=== PATIENT | male | born 1975 | race Caucasian/White ===

== ENCOUNTER 2017-11-18 09:48 | Inpatient (IN) ==
[2017-11-18] MEDS ORDERED: Acetaminophen 325 MG Tablet PO PRN (15:05)
[2017-11-18] MEDS ORDERED: Bisacodyl 10 MG Supp RECTAL PRN (15:05)
[2017-11-18] MEDS ORDERED: Morphine Inj 4 MG/ML Vial IV.PUSH PRN (15:13)
[2017-11-18] MEDS: Sod Chloride 0.9% Inj 1,000 ML IV.CONT SCH ×2 (16:44→23:24)
--- NOTE | 2017-11-18 16:58 | P.HP ---
History of Present Illness Primary Care Physician: UNKNOWN Chief Complaint: Flank pain History of Present Illness: The patient is a 42-year-old male with history significant for kidney stones in the past presenting with complaint of right flank pain since this morning. He had minimal urination does not have a urologist and he had several episodes of vomiting and currently nausea. He was not able to keep any food down today. Says pain is radiating to the groin. He also complains of chills but no fevers. No hematuria. Reports increased urinary urgency. The pain is 9 out of 10, sharp and stabbing in the right side radiating to the groin. Pain is constant however it gets worse at times. Review of Systems All other systems reviewed negative except as stated in HPI [facility] - History History Provided By: Patient - Medical History Medical History: Medical History (Last Reviewed 11/18/17 @ 17:04 by Bailey Shoemaker MD) Kidney stones - Surgical History Surgical History: Surgical History (Last Reviewed 11/18/17 @ 17:04 by Bailey Shoemaker MD) Hx of circumcision - Family History Family History: Family History (Last Updated 11/18/17 @ 17:05 by Bailey Shoemaker MD) Mother Hypertension Mother Breast cancer - Tobacco History Smoking Status: Never smoker - Alcohol History How Often Do You Have a Drink Containing Alcohol: 2 to 4 times a month - Substance Use History Substance History: No History of Abuse Medications and Allergies Active Medications: Active Medications Acetaminophen (Tylenol) 650 mg PO Q4H PRN PRN Reason: Temp > 100.4 Hydrocodone Bitart/Acetaminophen ([place] 10/325) 1 tab PO Q4H PRN PRN Reason: pain 2-5 Hydrocodone Bitart/Acetaminophen ([place] 5/325) 1 tab PO Q4H PRN PRN Reason: PAIN 6-10;IF UNABLE TO TAKE PO Al Hydroxide/Mg Hydroxide (Milk Of Magnesia Liq) 30 ml PO Q12H PRN PRN Reason: Mild Constipation Bisacodyl (Dulcolax Supp) 10 mg RECTAL DAILY PRN PRN Reason: SEVERE CONSITIPATION Sodium Chloride (Ns Inj) 1,000 mls @ 150 mls/hr IV.CONT .Q6H40M [facility] Last Admin: 11/18/17 16:44 Dose: 150 mls/hr Lactulose (Lactulose Liq) 30 ml PO DAILY PRN PRN Reason: SEVERE CONSITIPATION Morphine Sulfate (Morphine Inj) 2 mg IV.PUSH Q4H PRN PRN Reason: BREAKTHROUGH PAIN Ondansetron HCl (Zofran Inj) 4 mg IV.PUSH Q6H PRN PRN Reason: NAUSEA OR VOMITING Promethazine HCl (Phenergan) 25 mg PO Q6H PRN PRN Reason: nausea/vomi if can take PO Senna/Docusate Sodium (Quynh-Colace) 1 tab PO BID [facility] Sennosides (Senokot) 17.2 mg PO Q12H PRN PRN Reason: Moderate Constipation Allergies Allergy/AdvReac Type Severity Reaction Status Date / Time No Known Allergies Allergy Verified 11/18/17 11:04 Home Medications Medication Instructions Recorded Confirmed Type No Known Home Medications 11/18/17 11/18/17 History Exam Vital signs: Vital Signs 11/18/17 16:00 Temperature 98.6 F Pulse Rate 67 Respiratory Rate 18 Blood Pressure 143/77 H Pulse Oximetry 98 Narrative: GENERAL: Pleasant 42-year-old male, appears in some pain. SKIN: Warm and dry. HEAD: Atraumatic. Normocephalic. EYES: Pupils equal and round. No scleral icterus. No injection or drainage. ENT: No nasal bleeding or discharge. Mucous membranes pink and moist. NECK: Trachea midline. No JVD. CARDIOVASCULAR: Regular rate and rhythm. RESPIRATORY: No accessory muscle use. Clear to auscultation. Breath sounds equal bilaterally. GASTROINTESTINAL: Abdomen soft, right flank pain, nondistended. Mild right CVA tenderness. MUSCULOSKELETAL: Extremities without clubbing, cyanosis, or edema. No obvious deformities. NEUROLOGICAL: Awake and alert. No obvious cranial nerve deficits. Motor grossly within normal limits. Five out of 5 muscle strength in the arms and legs. Normal speech. PSYCHIATRIC: Appropriate mood and affect; insight and judgment normal. Results - Labs CBC & Chem 7: 11/19/17 06:50 11/19/17 06:50 Caprini VTE Risk Assessment Caprini VTE Risk Assessment: Moderate/High Risk (score >= 2) Caprini Risk Assessment Model: Point Value = 1 Point Value = 2 Point Value = 3 Point Value = 5 Age 41-60 Minor surgery BMI > 25 kg/m2 Swollen legs Varicose veins or History of unexplained or recurrent spontaneous Oral contraceptives or hormone replacement Sepsis (< 1 month) Serious lung disease, including pneumonia (< 1 month) Abnormal pulmonary function Acute myocardial infarction Congestive heart failure (< 1 month) History of inflammatory bowel disease Medical patient at bed rest Age 61-74 Arthroscopic surgery Major open surgery (> 45 min) Laparoscopic surgery (> 45 min) Malignancy Confined to bed (> 72 hours) Immobilizing plaster cast Central venous access Age >= 75 History of VTE Family history of VTE Factor V Leiden Prothrombin 12415L Lupus anticoagulant Anticardiolipin antibodies Elevated serum homocysteine Heparin-induced thrombocytopenia Other congenital or acquired thrombophilia Stroke (< 1 month) Elective arthroplasty Hip, pelvis, or leg fracture Acute spinal cord injury (< 1 month) Prophylaxis Regimen: Total Risk Factor Score Risk Level Prophylaxis Regimen 0-1 Low Early ambulation 2 Moderate Order ONE of the following: *Sequential Compression Device (SCD) *Heparin 5000 units SQ BID 3-4 Higher Order ONE of the following medications: *Heparin 5000 units SQ TID *Enoxaparin/Lovenox 40 mg SQ daily (WT < 150 kg, CrCl > 30 mL/min) *Enoxaparin/Lovenox 30 mg SQ daily (WT < 150 kg, CrCl > 10-29 mL/min) *Enoxaparin/Lovenox 30 mg SQ BID (WT < 150 kg, CrCl > 30 mL/min) AND/OR *Sequential Compression Device (SCD) 5 or more Highest Order ONE of the following medications: *Heparin 5000 units SQ TID (Preferred with Epidurals) *Enoxaparin/Lovenox 40 mg SQ daily (WT < 150 kg, CrCl > 30 mL/min) *Enoxaparin/Lovenox 30 mg SQ daily (WT < 150 kg, CrCl > 10-29 mL/min) *Enoxaparin/Lovenox 30 mg SQ BID (WT < 150 kg, CrCl > 30 mL/min) AND *Sequential Compression Device (SCD) Assessment and Plan - Plan Patient is a 42 yo male with h/o kidney stones, presented to [facility] with right flank pain. Patient with right obstructive uropathy and one stone already passed. Obstructing stone 6 mm in its proximally in the ureter and patient with associated hydronephrosis. The patient is also with nausea and vomiting and not able to take PO. Started on antiemetics. Pain meds per pain scale. Consult urology for eval. Monitor labs. Right Ureteral calculus Hydronephrosis of right kidney and hydroureter Nausea and vomiting Abdomen/Pelvis CT reviewed and findings discussed with ER doctor: 1. 6 mm mid right ureteral stone with proximal hydronephrosis and hydroureter. There is a 4 mm stone either within the urinary bladder itself or within the intramural segment of the right distal ureter. 2. Bilateral renal calculi. 3. Hepatic and renal cysts. IVF antiemetics Monitor kidney function, consult urology.
[2017-11-18] MEDS: Senna/Docusate Sodium 8.6/50 MG Tablet PO SCH (20:50)
[2017-11-19] MEDS: Sod Chloride 0.9% Inj 1,000 ML IV.CONT SCH ×3 (06:06→20:30)
[2017-11-19 07:33] LABS: Baso % (Auto) 0.3 % (0.0-2.0); Eos % (Auto) 0.4 % (0.0-4.0); Hematocrit 40.4 % (39.0-51.0); Hemoglobin 13.8 gm/dL (13.0-17.0); Lymph # (Auto) 1.1 th/mm3 (1.0-4.8); Lymph % (Auto) 15.1 % (9.0-44.0); Mean Corpuscular HGB Conc 34.2 % (32.0-36.0); Mean Corpuscular Volume 87.8 fL (80.0-100.0); Mean Platelet Volume 7.1 fL (7.0-11.0); Mono # (Auto) 0.9 th/mm3 (0.0-0.9); Neut # (Auto) 5.1 th/mm3 (1.8-7.7); Neut % (Auto) 71.2 % (16.0-70.0); Platelet Count 184 th/mm3 (150-450); Red Blood Count 4.61 mil/mm3 (4.50-5.90); Red Cell Distribution Width 12.9 % (11.6-17.2); White Blood Count 7.2 th/mm3 (4.0-11.0)
[2017-11-19 08:03] LABS: Calcium 8.5 mg/dL (8.5-10.1); Potassium 3.7 meq/L (3.5-5.1)
[2017-11-19] MEDS ORDERED: Naloxone Inj 0.4 MG/ML Vial IV.PUSH PRN (08:41)
[2017-11-19] MEDS: Senna/Docusate Sodium 8.6/50 MG Tablet PO SCH ×2 (09:00→22:28)
[2017-11-19] MEDS ORDERED: HYDROmorphone PF Inj 2 MG/ML Vial IV.PUSH PRN ×2 (09:15)
--- NOTE | 2017-11-19 14:02 | P.PN ---
Subjective Interval history: Patient is seen lying in bed. He reports that he is painful but tolerable. Continues to have nausea. Feels the need to urinate frequently but is only able to produce a small amount of urine at a time. No chest pain or shortness of breath. Physical Exam Vital signs: Vital Signs 11/18/17 16:00 11/18/17 17:13 11/18/17 17:57 Temperature 98.6 F Pulse Rate 67 Respiratory Rate 18 14 16 Blood Pressure 143/77 H Pulse Oximetry 98 11/18/17 20:00 11/18/17 23:19 11/19/17 04:00 Temperature 98.3 F 98.7 F 98.1 F Pulse Rate 77 69 83 Respiratory Rate 18 18 18 Blood Pressure 114/64 128/61 133/81 Pulse Oximetry 93 L 96 99 11/19/17 07:35 11/19/17 08:59 11/19/17 09:30 Temperature 98.7 F Pulse Rate 66 Respiratory Rate 20 16 14 Blood Pressure 135/73 Pulse Oximetry 96 11/19/17 12:16 11/19/17 12:45 Temperature 98.3 F Pulse Rate 66 Respiratory Rate 18 14 Blood Pressure 130/67 Pulse Oximetry 97 Intake & Output 11/18/17 11/19/17 11/19/17 18:59 06:59 18:59 Intake Total 140 / 140 1999 1000 / 1000 Output Total 40 / 40 Balance 100 / 100 1999 1000 / 1000 Weight 124.7 kg Intake: IV 1999 1000 / 1000 NS Inj 1,000 ML @ 150 mls/hr IV 1999 1000 / 1000 .CONT .Q6H40M [facility] Rx#:[id number] Oral 140 / 140 Output: Urine 40 / 40 Other: # Voids 2 Date of Last Bowel Movement 11/18/17 11/18/17 11/18/17 Weight On Admission 124.284 kg Narrative: GENERAL: Well-nourished, well-developed adult male in mild pain. SKIN: Warm and dry. HEAD: Atraumatic. Normocephalic. CARDIOVASCULAR: Regular rate and rhythm. RESPIRATORY: No accessory muscle use. Clear to auscultation. Breath sounds equal bilaterally. GASTROINTESTINAL: Abdomen soft, right flank pain, nondistended. Right CVA tenderness. MUSCULOSKELETAL: Extremities without clubbing, cyanosis, or edema. No obvious deformities. NEUROLOGICAL: Awake and alert. No obvious cranial nerve deficits. Motor grossly within normal limits. Normal speech. PSYCHIATRIC: Appropriate mood and affect; insight and judgment normal. Results - Labs CBC & Chem 7: 11/19/17 06:50 11/19/17 06:50 Laboratory Results - last 24 hr 11/19/17 11/19/17 06:50 06:50 WBC 7.2 RBC 4.61 Hgb 13.8 Hct 40.4 MCV 87.8 MCH 30.0 MCHC 34.2 RDW 12.9 Plt Count 184 MPV 7.1 Neut % (Auto) 71.2 H Lymph % (Auto) 15.1 Blount % (Auto) 13.0 H Eos % (Auto) 0.4 Baso % (Auto) 0.3 Neut # (Auto) 5.1 Lymph # (Auto) 1.1 Blount # (Auto) 0.9 Eos # (Auto) 0.0 Baso # (Auto) 0.0 WBC Differential . Differential Comment Auto diff final Sodium 140 Potassium 3.7 Chloride 109 H Carbon Dioxide 24.0 Anion Gap 7 BUN 9 Creatinine 1.47 H Estimated GFR 53 L Random Glucose 97 Calcium 8.5 Assessment and Plan - Plan Patient is a 42 yo male with h/o kidney stones, presented to [place] ER with right flank pain. Right Ureteral calculus w/ Hydronephrosis of right kidney and hydroureter -Urology consulted -IVF -antiemetics and pain control DVT prophylaxis: Patient is ambulatory Discharge planning: Likely home after cleared by urology
[2017-11-19] MEDS ORDERED: Metoprolol Tartrate 25 MG Tablet PO ONE (15:57)
[2017-11-19] MEDS ORDERED: Chlorhexidine Gluconate 2% 1 Pack (2 Cloths) TOPICAL ONE (15:57)
[2017-11-19] MEDS ORDERED: Lidocaine PF 1% Inj 5 ML Syringe OTHER ONE (16:38)
--- NOTE | 2017-11-19 18:39 | P.OP ---
- Preoperative Diagnosis (1) Ureteral calculus (2) Renal calculi (3) Hydronephrosis concurrent with and due to calculi of kidney and ureter - Postoperative Diagnosis (1) Hydronephrosis concurrent with and due to calculi of kidney and ureter (2) Renal calculi (3) Ureteral calculus Date of procedure: 11/19/17 Procedure: Cystoscopy with right ureteroscopy and laser lithotripsy, stone extraction, right retrograde pyelogram, right double-J stent insertion Anesthesia: other (General LMA) Surgeon: Chadd Loo DO Estimated blood loss (mL): 0 Operation and Findings: 42-year-old male presented to the emergency room with findings of a 7 mm stone in the mid right ureter causing obstruction. Patient also had multiple stones in the right kidney. Decision made to bring the patient to the operating room to undergo cystoscopy with possible right double-J stent with possible ureteroscopy and stone extraction. Risk and benefits were discussed preoperatively and the patient was willing to proceed. Patient was brought to the operating identified by myself as Everton Quintana. He was placed in dorsal lithotomy position, prepped draped in sterile fashion, received preprocedure antibiotics and general LMA anesthesia was administered. 22 Telugu cystoscope was inserted the bladder brown cystoscopy did not reveal any abnormal did a right retrograde pyelogram was then performed using a 5 Telugu opening catheter with contrast material injected into the right ureter with no filling defect identified. A few filling defects were identified within the right kidney. The Olympus flexible ureteroscope was then passed into the bladder and up the right ureter with no stone visualized in the right ureter. Once in the kidney, multiple stones were identified. Using the nitinol basket multiple stone fragments were retrieved and sent to pathology. A large stone was also grasped with a nitinol basket which got caught in the ureter and then a 200 m laser fiber at a setting of 10 and 10 was able to fragment of the stone. The fragments were removed from the ureter and then the stone burden appeared to be cleared at this point in time. Another retrograde pyelogram was then performed demonstrating no evidence of any obstructing stones within the ureter and then a 0.35 sensor wire was passed up into the kidney. A 6 Telugu 24 cm right double -J stent was placed over the wire with a good curl in the kidney and a good curl in the bladder. The bladder was evacuated he was awoken extubated transferred Stable condition. He will follow-up in the office in 2 weeks for cystoscopy stent removal and will have a CAT scan prior to make sure all stone burden has cleared.
[2017-11-19] MEDS ORDERED: *Meperidine Inj 25 MG/ML Vial PERIprocedural Use ONLY ONE (18:42)
[2017-11-19] MEDS ORDERED: fentaNYL Citrate Inj 100 MCG/2 ML Ampul ONE (18:56)
[2017-11-19] MEDS: *Meperidine Inj 25 MG/ML Vial PERIprocedural Use ONLY ONE ×2 (19:01)
[2017-11-19] MEDS ORDERED: Morphine Sulfate Inj 2 MG/ML Vial IV.PUSH PRN (19:28)
[2017-11-19] MEDS ORDERED: Sodium Chloride 0.9% 2 ML Flush PRN IV.FLUSH (20:21)
[2017-11-19] MEDS: Sodium Chloride 0.9% 2 ML Flush BID IV.FLUSH SCH (22:28)
[2017-11-19] MEDS: Sodium Chlor 0.9% Inj 500 ML IV.SIG SCH (22:39)
[2017-11-20] MEDS: Sodium Chlor 0.9% Inj 500 ML IV.SIG SCH (00:48)
[2017-11-20] MEDS: Sod Chloride 0.9% Inj 1,000 ML IV.CONT SCH ×3 (00:58→08:26)
[2017-11-20] MEDS: ceFAZolin 2 GM Premix Inj 2 GM/50 ML PIGGYBACK IV.SIG SCH ×2 (00:59→10:06)
--- NOTE | 2017-11-20 07:49 | P.PN ---
Subjective Interval history: Patient is seen sitting up in bed. Reports that he is feeling much better however he still has some pretty significant burning with urination. No chest pain or shortness of breath. No nausea vomiting or diarrhea. He would like to go home. Physical Exam Vital signs: Vital Signs 11/19/17 08:59 11/19/17 09:30 11/19/17 12:16 Temperature 98.3 F Pulse Rate 66 Respiratory Rate 16 14 18 Blood Pressure 130/67 Pulse Oximetry 97 11/19/17 12:45 11/19/17 18:45 11/19/17 19:00 Temperature 98.1 F Pulse Rate 123 H 97 H Respiratory Rate 14 30 H 30 H Blood Pressure 147/65 H 136/60 Pulse Oximetry 96 97 11/19/17 19:15 11/19/17 19:30 11/19/17 20:00 Temperature 98 F 98.8 F Pulse Rate 92 H 80 84 Respiratory Rate 24 24 16 Blood Pressure 135/96 H 126/58 L 123/65 Pulse Oximetry 95 97 93 L 11/19/17 23:38 11/20/17 03:38 Temperature 98.8 F 98.8 F Pulse Rate 72 78 Respiratory Rate 16 16 Blood Pressure 127/65 105/61 Pulse Oximetry 94 L 95 Intake & Output 11/19/17 11/20/17 11/20/17 18:59 06:59 18:59 Intake Total 1700 / 1700 1060 / 1060 Output Total 5 / 5 500 / 500 Balance 1695 / 1695 560 / 560 Intake: IV 1000 / 1000 1050 / 1050 NS Inj 1,000 ML @ 150 mls/hr IV 1000 / 1000 1000 / 1000 .CONT .Q6H40M [facility] Rx#:[id number] Ancef 2 GM Premix Inj 2 gm In 50 / 50 50 ml @ 100 mls/hr IV.SIG Q8H [facility] Rx#:[id number] Oral Anesthesia Amount 700 / 700 Output: Urine 500 / 500 Estimated Blood Loss 5 / 5 Other: # Voids 4 # Incontinent Voids 1 Date of Last Bowel Movement 11/18/17 11/18/17 Narrative: GENERAL: Well-nourished, well-developed adult male in mild pain. SKIN: Warm and dry. HEAD: Atraumatic. Normocephalic. CARDIOVASCULAR: Regular rate and rhythm. RESPIRATORY: No accessory muscle use. Clear to auscultation. Breath sounds equal bilaterally. GASTROINTESTINAL: Abdomen soft, nontender, nondistended. MUSCULOSKELETAL: Extremities without clubbing, cyanosis, or edema. No obvious deformities. NEUROLOGICAL: Awake and alert. No obvious cranial nerve deficits. Motor grossly within normal limits. Normal speech. PSYCHIATRIC: Appropriate mood and affect; insight and judgment normal. Results - Labs CBC & Chem 7: 11/19/17 06:50 11/19/17 06:50 Laboratory Results - last 24 hr 11/19/17 06:50 Sodium 140 Potassium 3.7 Chloride 109 H Carbon Dioxide 24.0 Anion Gap 7 BUN 9 Creatinine 1.47 H Estimated GFR 53 L Random Glucose 97 Calcium 8.5 Assessment and Plan - Assessment (1) Ureteral calculus Code(s): N20.1 - Calculus of ureter Status: Acute (2) Renal calculi Code(s): N20.0 - Calculus of kidney Status: Acute (3) Hydronephrosis concurrent with and due to calculi of kidney and ureter Code(s): N13.2 - Hydronephrosis with renal and ureteral calculous obstruction Status: Acute - Plan Patient is a 42 yo male with h/o kidney stones, presented to [place] ER with right flank pain. Right Ureteral calculus w/ Hydronephrosis of right kidney and hydroureter -Urology consulted -cystoscopic V and stone removal done 11/19. Drain placed. follow-up outpatient -IVF -antiemetics and pain control DVT prophylaxis: Patient is ambulatory Discharge planning: home after cleared by urology
--- NOTE | 2017-11-20 08:05 | P.DS ---
Date of admission: 11/19/17 16:38 Primary care physician: UNKNOWN Attending physician on discharge: Fernando Deleon Anticipated date of discharge: 11/20/17 Brief History from admission: The patient is a 42-year-old male with history significant for kidney stones in the past presenting with complaint of right flank pain since this morning. He had minimal urination does not have a urologist and he had several episodes of vomiting and currently nausea. He was not able to keep any food down today. Says pain is radiating to the groin. He also complains of chills but no fevers. No hematuria. Reports increased urinary urgency. The pain is 9 out of 10, sharp and stabbing in the right side radiating to the groin. Pain is constant however it gets worse at times. DS: Diagnosis - Discharge Diagnosis (1) Ureteral calculus Status: Resolved (2) Renal calculi Status: Resolved (3) Hydronephrosis concurrent with and due to calculi of kidney and ureter Status: Resolved DS: Medications - Discharge Medications Prescriptions: RX: hydrocodone-acetaminophen 1 tab PO Q8HR PRN #9 tab PRN Reason: Acute Pain DS: Summary Hospital Course: 42-year-old male presented to the emergency room with findings of a 7 mm stone in the mid right ureter causing obstruction. Patient also had multiple stones in the right kidney. Urology was consulted and a cystoscopy with right ureteroscopy and laser lithotripsy, stone extraction, right retrograde pyelogram , right double-J stent insertion was completed by Dr. Loo on 11/19/17. Patient responded well and reported significant lessening of pain. Plan is for follow-up in the office in 2 weeks for cystoscopy stent removal and will have a CAT scan prior to make sure all stone burden has cleared. [place] Prescription Drug Monitoring Database has been queried and verified prior to prescribing the controlled substance. Acute pain exception: This patient has normal, predicted, physiological, and time limited response to an adverse mechanical stimulus associated with surgery , trauma, or acute illness as described in my notes. There is a lack of alternative treatment options other than to include the prescribed narcotic treatment for this condition. - Time Spent with Patient Total time spent providing and/or coordinating discharge services: Less than 30 minutes - Quality: VTE Deep Vein Thrombosis/Pulmonary Embolism Present on Admission: No Exam Vital signs: Vital Signs 11/19/17 08:59 10/11/18 09:30 11/19/17 12:16 Temperature 98.3 F Pulse Rate 66 Respiratory Rate 16 14 18 Blood Pressure 130/67 Pulse Oximetry 97 11/19/17 12:45 11/19/17 18:45 11/19/17 19:00 Temperature 98.1 F Pulse Rate 123 H 97 H Respiratory Rate 14 30 H 30 H Blood Pressure 147/65 H 136/60 Pulse Oximetry 96 97 11/19/17 19:15 11/19/17 19:30 11/19/17 20:00 Temperature 98 F 98.8 F Pulse Rate 92 H 80 84 Respiratory Rate 24 24 16 Blood Pressure 135/96 H 126/58 L 123/65 Pulse Oximetry 95 97 93 L 11/19/17 23:38 11/20/17 03:38 Temperature 98.8 F 98.8 F Pulse Rate 72 78 Respiratory Rate 16 16 Blood Pressure 127/65 105/61 Pulse Oximetry 94 L 95 Intake & Output 11/19/17 11/20/17 11/20/17 18:59 06:59 18:59 Intake Total 1700 / 1700 1060 / 1060 Output Total 5 / 5 500 / 500 Balance 1695 / 1695 560 / 560 Intake: IV 1000 / 1000 1050 / 1050 NS Inj 1,000 ML @ 150 mls/hr IV 1000 / 1000 1000 / 1000 .CONT .Q6H40M [facility] Rx#:[id number] Ancef 2 GM Premix Inj 2 gm In 50 / 50 50 ml @ 100 mls/hr IV.SIG Q8H [facility] Rx#:[id number] Oral Anesthesia Amount 700 / 700 Output: Urine 500 / 500 Estimated Blood Loss 5 / 5 Other: # Voids 4 # Incontinent Voids 1 Date of Last Bowel Movement 11/18/17 11/18/17 Narrative: GENERAL: Well-nourished, well-developed adult male in mild pain. SKIN: Warm and dry. HEAD: Atraumatic. Normocephalic. CARDIOVASCULAR: Regular rate and rhythm. RESPIRATORY: No accessory muscle use. Clear to auscultation. Breath sounds equal bilaterally. GASTROINTESTINAL: Abdomen soft, nontender, nondistended. MUSCULOSKELETAL: Extremities without clubbing, cyanosis, or edema. No obvious deformities. NEUROLOGICAL: Awake and alert. No obvious cranial nerve deficits. Motor grossly within normal limits. Normal speech. PSYCHIATRIC: Appropriate mood and affect; insight and judgment normal. Results Procedures completed during hospitalization: 11/19/17 - Cystoscopy with right ureteroscopy and laser lithotripsy, stone extraction, right retrograde pyelogram, right double-J stent insertion Pending studies at discharge: Pending at discharge 11/19/17 Surgical [PTH] Routine Labs on day of discharge: Labs from last 24 hours 11/19/17 06:50 Sodium 140 Potassium 3.7 Chloride 109 H Carbon Dioxide 24.0 Anion Gap 7 BUN 9 Creatinine 1.47 H Estimated GFR 53 L Random Glucose 97 Calcium 8.5 Discharge Plan - Discharge Disposition Patient Disposition: Discharge Home - Discharge Condition Condition: Stable - Discharge Order Discharge Orders: Discharge Order (Routine); Ordered 11/20/17 Ordered By: Armida Manning - Discharge Details Discharge Comment: Patient is cleared for discharge medically; will need clearance from urology. Urology to determine need for continued tamsulosin and antibiotic treatment. - Physicians Team Primary Care Provider: UNKNOWN, Attending Provider: Fernando Deleon Other Providers: Chadd Loo DO - Rxs /Orders / Referrals /Forms Prescriptions: New hydrocodone-acetaminophen 5-325 mg Tablet 1 tab PO Q8HR PRN (Reason: Acute Pain) Qty: 9 RF: 0 No Action No Known Home Medications Referrals: Chadd Loo DO [UROLOGY] - See Instructions UNKNOWN, [Primary Care Provider] - See Instructions - Discharge Instructions Patient Printed Instructions: Cystoscopy (DC) - Post Discharge Care Plan Care Plan Goals: Your Health Problems: Goals to Promote Your Health: * To prevent worsening of your condition * To maintain your health at the optimal level Directions to Meet Your Goals: * Take your medications as prescribed * Follow your dietary instruction * Follow activity as directed * Keep your appointments as scheduled * Take your immunizations and boosters as scheduled * If your symptoms worsen call your PCP * If no PCP go to Urgent Care or Emergency Room Smoking is dangerous to your health. Avoid second hand smoke. You may reach the 24-hour crisis hotline for domestic abuse at .
[2017-11-20 08:18] VITALS: BP 120/73; PULSE 90; RESP 18; TEMP 98.1; O2SAT 96
[2017-11-20] MEDS: Sodium Chloride 0.9% 2 ML Flush BID IV.FLUSH SCH (08:27)
--- NOTE | 2017-11-20 08:51 | P.PNURO ---
Subjective Patient symptoms today: Pt seen and examined. Feeling better. Objective Vital Signs: Vital Signs 11/19/17 08:59 11/19/17 09:30 11/19/17 12:16 Temperature 98.3 F Pulse Rate 66 Respiratory Rate 16 14 18 Blood Pressure 130/67 Pulse Oximetry 97 11/19/17 12:45 11/19/17 18:45 11/19/17 19:00 Temperature 98.1 F Pulse Rate 123 H 97 H Respiratory Rate 14 30 H 30 H Blood Pressure 147/65 H 136/60 Pulse Oximetry 96 97 11/19/17 19:15 11/19/17 19:30 11/19/17 20:00 Temperature 98 F 98.8 F Pulse Rate 92 H 80 84 Respiratory Rate 24 24 16 Blood Pressure 135/96 H 126/58 L 123/65 Pulse Oximetry 95 97 93 L 11/19/17 23:38 11/20/17 03:38 11/20/17 08:00 Temperature 98.8 F 98.8 F 98.1 F Pulse Rate 72 78 90 Respiratory Rate 16 16 18 Blood Pressure 127/65 105/61 120/73 Pulse Oximetry 94 L 95 96 Intake & Output 11/19/17 11/20/17 11/20/17 18:59 06:59 18:59 Intake Total 1700 / 1700 1060 / 1060 Output Total 5 / 5 500 / 500 Balance 1695 / 1695 560 / 560 Intake: IV 1000 / 1000 1050 / 1050 NS Inj 1,000 ML @ 150 mls/hr IV 1000 / 1000 1000 / 1000 .CONT .Q6H40M [facility] Rx#:[id number] Ancef 2 GM Premix Inj 2 gm In 50 / 50 50 ml @ 100 mls/hr IV.SIG Q8H [facility] Rx#:[id number] Oral Anesthesia Amount 700 / 700 Output: Urine 500 / 500 Estimated Blood Loss 5 / 5 Other: # Voids 4 # Incontinent Voids 1 Date of Last Bowel Movement 11/18/17 11/18/17 Result Diagrams: 11/19/17 06:50 11/19/17 06:50 Medications and IVs: Active Medications Generic Name Dose Route Start Last Admin Trade Name Freq PRN Reason Stop Dose Admin Acetaminophen 650 mg 11/18/17 15:05 Tylenol PO Q4H PRN Temp > 100.4 Hydrocodone Bitart/Acetaminophen 1 tab 10/11/18 19:28 Lissie 5/325 PO Q6H PRN PAIN SCALE 1 TO 5 Al Hydroxide/Mg Hydroxide 30 ml 11/18/17 15:05 Milk Of Magnesia Liq PO Q12H PRN Mild Constipation Bisacodyl 10 mg 11/18/17 15:05 Dulcolax Supp RECTAL DAILY PRN SEVERE CONSITIPATION Sodium Chloride 1,000 mls @ 150 mls/hr 11/18/17 15:15 11/20/17 08:26 Ns Inj IV.CONT Not Given .Q6H40M [facility] Lactated Ringer's 1,000 mls @ 30 mls/hr 11/19/17 16:00 11/19/17 15:30 Lr 1000 Ml Inj IV.SIG 11/20/17 15:59 30 mls/hr .Q24H [facility] Administration Sodium Chloride 500 mls @ 30 mls/hr 11/19/17 16:00 11/20/17 00:48 Ns Inj IV.SIG Not Given .Q10H [facility] Cefazolin Sodium/Dextrose 2 gm in 50 mls @ 100 mls/hr 11/20/17 01:00 01:45 Ancef 2 Gm Premix Inj IV.SIG 11/20/17 09:29 Infused Q8H [facility] Infusion Lactulose 30 ml 11/18/17 15:05 Lactulose Liq PO DAILY PRN SEVERE CONSITIPATION Miscellaneous Information 1 each 11/19/17 19:47 Misc Nursing Information OTHER 11/20/17 19:47 UNSCH PRN SEE LABEL COMMENTS Morphine Sulfate 2 mg 11/19/17 19:28 Morphine Inj IV.PUSH Q2H PRN PAIN SCALE 6 TO 10 Naloxone HCl 0.4 mg 11/19/17 08:41 Narcan Inj IV.PUSH UNSCH PRN SEE LABEL COMMENTS Ondansetron HCl 4 mg 11/18/17 15:05 Zofran Inj IV.PUSH Q6H PRN NAUSEA OR VOMITING Promethazine HCl 25 mg 11/18/17 15:12 Phenergan PO Q6H PRN nausea/vomi if can take PO Senna/Docusate Sodium 1 tab 11/18/17 21:00 11/19/17 22:28 Quynh-Colace PO Not Given BID [facility] Sennosides 17.2 mg 11/18/17 15:05 Senokot PO Q12H PRN Moderate Constipation Sodium Chloride 2 ml 11/19/17 21:00 11/20/17 08:27 Ns Flush IV.FLUSH Not Given BID [facility] Sodium Chloride 2 ml 11/19/17 20:21 Ns Flush IV.FLUSH PRN PRN FLUSH AFTER USING IV ACCESS Tamsulosin HCl 0.4 mg 11/18/17 23:00 11/19/17 22:27 Flomax PO Not Given HS [facility] Objective Remarks: Abd:soft,nt,nd Assessment and Plan - Plan Stable s/p Right URS with laser litho and stent insertion Stable for discharge F/U in 2 weeks for cysto with stent removal CT scan prior
[2017-11-20] MEDS: Senna/Docusate Sodium 8.6/50 MG Tablet PO SCH (10:05)
== END 2017-11-20 12:08 | disposition home or self-care (01) ==
LOC: NEPHCDU 09:48 → NEDDLT 09:48
PROVIDERS: ADMIT Internal Medicine; ATTEND Internal Medicine